=== PATIENT | female | born 1975 | race African-American/Black ===

== ENCOUNTER 2020-08-23 17:46 | Emergency (ER) | payer MEDICAID ==
[~2020-08-23] VITALS: Ht 154.9 cm; Wt 102.1 kg
[2020-08-23 18:04] VITALS: BP 151/96
[2020-08-23] MEDS ORDERED: ACET-73 PO (18:44)
--- NOTE | 2020-08-23 19:02 | NUR ---
PCR COVID SWAB AND THROAT SWAB DONE AND SENT TO LAB
== END 2020-08-23 19:15 | disposition home or self-care (01) ==
LOC: ER 18:01
DX: B34.9 Viral infection, unspecified (principal); Z20.822 Contact with and (suspected) exposure to COVID-19
CPT/HCPCS: 71045; 87070; 87880; 99284; C9803; U0003; 86403-TC

== ENCOUNTER 2021-05-10 12:28 | Emergency (ER) | payer MEDICAID ==
[~2021-05-10] VITALS: Ht 154.9 cm; Wt 95.3 kg
[~2021-05-10 12:28] MED LIST: ACET-73 PO
--- NOTE | 2021-05-10 12:47 | NUR ---
CAME TO ER C/O INTERMITTENT CHEST PRESSURE AND NECK PAIN X 1 WEEK. CHEST PRESSURE IN MEDIASTINUM, NON RADIATING, PAIN 6/10. DENIES N/V, FEVER/CHILLS, DIAPHORESIS. ADMITS PAIN ON INSPIRATION. DENIES HX OF CARDIAC PROBLEMS, DVT. PRE-DIABETIC. NECK PAIN BEGAN AT THE SAME TIME SHE STARTED TAKING CKLS PILL AND SHE HAS HAD THROAT TIGHTNESS SINCE GETTING THE COVID PFIZER VACCINE. A&OX4, AMBULATORY, PULSES 2+ BILATERALLY. NO MURMURS HEARD. SKIN IS WARM AND DRY. ON MONITOR.
[2021-05-10] MEDS ORDERED: KETOROLAC TROMETHAMINE INJ 30 MG/ML VIAL IV ONE (13:30)
[2021-05-10] MEDS ORDERED: KETOROLAC TROMETHAMINE 15 MG/ML VIAL ONE (13:35)
[2021-05-10 13:38] LABS: BASOPHILS # (AUTO) 0.1 K/uL (0.0-0.2); BASOPHILS % (AUTO) 0.8 % (0.0-2.0); EOSINOPHILS % (AUTO) 3.9 % (0.0-6.0); HEMATOCRIT 40 % (33-45); HEMOGLOBIN 13.1 g/dL (11.5-14.8); LYMPHOCYTES # (AUTO) 1.8 K/uL (0.8-4.8); LYMPHOCYTES % (AUTO) 25.5 % (20.0-44.0); MEAN CORPUSCULAR HGB CONC 33 g/dl (31.0-36.0); MEAN CORPUSCULAR VOLUME 90 fL (82-100); NEUTROPHILS % (AUTO) 55.8 % (43.0-81.0); PLATELET COUNT (AUTO) 312 K/uL (150-450); RED BLOOD CELL COUNT(AUTO) 4.43 MIL/uL (4.0-5.2); WHITE BLOOD COUNT (AUTO) 7.1 K/uL (4.3-11.0)
[2021-05-10 14:04] LABS: CALCIUM, SERUM 9.9 mg/dL (8.5-10.1); CARBON DIOXIDE 25 mmol/L (21-32); CHLORIDE 105 mmol/L (98-107); CREATININE 0.6 mg/dL (0.6-1.3); GLUCOSE 101 mg/dL (74-106); SODIUM SERUM 137 mmol/L (136-145); UREA NITROGEN, BLOOD 11 mg/dL (7-18)
[2021-05-10] MEDS ORDERED: IOHEXOL-350 100 ML VIAL IV ONE (17:08)
--- NOTE | 2021-05-10 17:30 | NUR ---
MIDLINE ORDER RECEIVED FROM DR CHAO. NOTED AND CARRIED OUT.
--- NOTE | 2021-05-10 17:49 | NUR ---
THE PATIENT IS TAKEN TO CT
--- NOTE | 2021-05-10 18:00 | NUR ---
THE PATIENT IS BACK FROM CT
--- NOTE | 2021-05-10 18:49 | NUR ---
IV removed. Catheter intact and site benign. Pressure and 4x4 applied to site. No bleeding noted.
--- NOTE | 2021-05-10 18:49 | NUR ---
Patient discharged to home in stable condition. Written and verbal after care instructions given. Patient verbalizes understanding of instruction.
[2021-05-10 18:55] VITALS: BP 133/86
== END 2021-05-10 18:56 | disposition home or self-care (01) ==
LOC: ER 12:30
DX: R07.89 Other chest pain (principal)
CPT/HCPCS: 36415; 71045; 71275; 80048; 83880; 84484; 85025; 85378; 93005 ×2; 96374; 99285; J1885; Q9967

== ENCOUNTER 2022-11-02 04:04 | Emergency (ER) | payer MEDICAID ==
[~2022-11-02] VITALS: Ht 157.5 cm; Wt 108.9 kg
--- NOTE | 2022-11-02 04:30 | NUR ---
BIBDAUGHTER FROM HOME, CC OF CHEST PAIN STARTED 2 HRS AGO, CRUSHING IN PRESENTATION SCALE OF 5/10.
[2022-11-02] MEDS ORDERED: ASPIRIN 325 MG TABLET PO ONE (05:00)
[2022-11-02] MEDS ORDERED: ASPIRIN 325 MG TABLET ONE (05:00)
[2022-11-02 05:20] LABS: BASOPHILS # (AUTO) 0.1 K/uL (0.0-0.2); BASOPHILS % (AUTO) 0.8 % (0.0-2.0); EOSINOPHILS % (AUTO) 2.5 % (0.0-6.0); HEMATOCRIT 39 % (33-45); HEMOGLOBIN 12.4 g/dL (11.5-14.8); LYMPHOCYTES % (AUTO) 21.9 % (20.0-44.0); MEAN CORPUSCULAR HGB CONC 32 g/dl (31.0-36.0); MEAN CORPUSCULAR VOLUME 90 fL (82-100); MONOCYTES # (AUTO) 1.4 K/uL (0.1-1.30); MONOCYTES % (AUTO) 15.3 % (2.0-12.0); NEUTROPHILS # (AUTO) 5.4 K/uL (1.8-8.9); NEUTROPHILS % (AUTO) 59.5 % (43.0-81.0); PLATELET COUNT (AUTO) 343 K/uL (150-450); RED BLOOD CELL COUNT(AUTO) 4.33 MIL/uL (4.0-5.2)
[2022-11-02 05:51] LABS: ALANINE AMINOTRANSFERASE 57 U/L (12-78); ALBUMIN 3.6 g/dL (3.4-5.0); ALKALINE PHOSPHATASE 120 U/L (46-116); ASPARTATE AMINOTRANSFERASE 28 U/L (15-37); BILIRUBIN,DIRECT 0.1 mg/dL (0.0-0.2); BILIRUBIN,TOTAL 0.3 mg/dL (0.2-1.0); CALCIUM, SERUM 10.1 mg/dL (8.5-10.1); CARBON DIOXIDE 23 mmol/L (21-32); CHLORIDE 108 mmol/L (98-107); CREATININE 0.7 mg/dL (0.6-1.3); GLUCOSE 126 mg/dL (74-106); POTASSIUM 4.6 mmol/L (3.5-5.1); SODIUM SERUM 139 mmol/L (136-145); TOTAL PROTEIN, SERUM 7.5 g/dL (6.4-8.2); UREA NITROGEN, BLOOD 18 mg/dL (7-18)
--- NOTE | 2022-11-02 07:43 | NUR ---
Patient AOx4 able to expres her concerns. Patient with no signs of distress or discomfort. Discussed plan on care, pt verbalized agreement.
[2022-11-02 08:20] VITALS: BP 134/80
== END 2022-11-02 08:22 | disposition home or self-care (01) ==
LOC: ER 04:15
DX: R07.89 Other chest pain (principal); Z79.899 Other long term (current) drug therapy
CPT/HCPCS: 36415; 71045-TC; 80048-TC; 80076-TC; 84484-TC; 85025-TC; 85730-TC